=== PATIENT | female | born 1960 | race Hispanic/Latino ===

== ENCOUNTER 2017-11-15 12:40 | Emergency (ER) | payer BC ==
[~2017-11-15] VITALS: Ht 157.5 cm; Wt 107.0 kg
[2017-11-15] MEDS ORDERED: KETOROLAC TROMETHAMINE 60 MG/2 ML VIAL IM ONE (13:30)
[2017-11-15] MEDS ORDERED: CYCLOBENZAPRINE HCL 10 MG TAB PO ONE (13:30)
--- NOTE | 2017-11-15 15:00 | Diagnostic Imaging Report ---
EXAMINATION: CHEST 2 VIEWS INDICATION: \S\back pain \[id number] \S\[id number] COMPARISON: None FINDINGS: PA and lateral views TUBES and LINES: None. LUNGS: Lungs are well inflated. Bilateral interstitial edema. No lobar consolidations. PLEURA: No pleural effusion or pneumothorax. HEART AND MEDIASTINUM: Mild enlargement of the cardiac silhouette. BONES AND SOFT TISSUES: Mild degenerative changes of the thoracic spine. Soft tissues are unremarkable. UPPER ABDOMEN: No free air under the diaphragm. Right upper quadrant cholecystectomy clips. IMPRESSION: Mild enlargement of the cardiac silhouette with associated bilateral interstitial edema. Signed by: Dr. Gladys Barcenas M.D. on 11/15/2017 2:57 PM
--- NOTE | 2017-11-15 15:02 | Diagnostic Imaging Report ---
Lumbar Spine Radiographs: 5 views HISTORY: Pain. COMPARISON: None available. DISCUSSION: Some of the osseous structures are partially obscured by stool and bowel gas. There are five non-rib bearing lumbar vertebral bodies. The alignment of the spine is within normal limits. No displaced fracture or compression deformity is identified. Disc Spaces: The disc spaces are well maintained. Facets: The facet joints are unremarkable. Right upper and lower quadrant surgical clips. IMPRESSION: No acute radiographic abnormality. Signed by: Dr. Gladys Barcenas M.D. on 11/15/2017 2:58 PM
[2017-11-15 16:05] VITALS: BP 176/81
== END 2017-11-15 16:08 | disposition home or self-care (01) ==
LOC: ER 12:40
DX: M54.41 Lumbago with sciatica, right side (principal); I51.7 Cardiomegaly; E03.9 Hypothyroidism, unspecified; Z86.718 Personal history of other venous thrombosis and embolism
CPT/HCPCS: 71046; 72110; 99283; J1885